=== PATIENT | male | born 1970 | race Two or more races ===

== ENCOUNTER 2021-02-01 09:21 | Day surgery (SDC) | payer BC ==
[2021-01-27 16:28] VITALS: BMI 33.9
[2021-02-01 13:12] VITALS: BP 130/86; PULSE 87; TEMP 97.8
== END 2021-02-01 13:05 | disposition home or self-care (01) ==
LOC: FASU-ENDO 09:21
PROVIDERS: ATTEND Internal Medicine Gastroenterology
PROC: 0DJD8ZZ Inspection of Lower Intestinal Tract, Via Natural or Artificial Opening Endoscopic (ICD-10-PCS; principal; 2021-02-01 11:50)
DX: Z12.11 Encounter for screening for malignant neoplasm of colon (principal)
CPT/HCPCS: 82962